=== PATIENT | female | born 1950 | race Caucasian/White ===

== ENCOUNTER 2017-07-12 18:07 | Emergency (ER) ==
[2017-07-12 18:13] VITALS: BP 165/90; TEMP 99.9; BMI 31.9
--- NOTE | 2017-07-12 18:42 | ED.PDOC ---
General ED Provider: Dr. IMELDA WILDER Chief Complaint: Respiratory Complaint Stated Complaint: CC: Cough and congestion. Has been ill for past several days but beginning. last evening developed SOB which has progessed today. Burning sensation in chest with coughiing with coughing. Cough is productive of yellowish thick sputum. States she just finished a Rx for Zithromax yesterday and started taking Mobic for an injured lt shoulder today. Overall her main problem is pain in her lower ribcage regions bilaterally from the coughing. Has not been taking. cough meds. Time Seen by Physician: 18:30 Mode of Arrival: Walk-In Information Source: Patient Primary Care Provider: LAURITA MENDIOLA Nursing and Triage Documentation Reviewed and Agree: Yes Reviewed sepsis parameters & appropriate labs ordered?: Yes System Inflammatory Response Syndrome: Not Applicable Sepsis Protocol: For patient's 13 years and over: Temp is 96.8 and below OR 101 and greater Pulse >90 BPM Resp >20/minute Acutely Altered Mental Status Are patient's symptoms suggestive of a new infection, such as: -Pneumonia -Skin, Soft Tissue -Endocarditis -UTI -Bone, Joint Infection -Implantable Device -Acute Abdominal Infection -Wound Infection -Meningitis -Blood Stream Catheter Infection -Unknown System Inflammatory Response Syndrome: Not Applicable Respiratory Complaint Exam - Respiratory Complaint/Exam Symptoms Are: Still present Timing: Constant Initial Severity: Moderate Current Severity: Moderate Location: Throat, Chest Character: Reports: Productive cough Aggravating: Reports: Exertion, Deep breaths, Recumbent position Alleviating: Reports: OTC Meds Associated Signs and Symptoms: Reports: Fever, Chest pain, Pleuritic chest pain , Nasal congestion, Hoarseness History of Healthcare-Acquired Pneumonia: No Related Surgical History: Reports: None Pulmonary Embolism Risk Factors: None Cardiac Risk Factors: Reports: Elevated lipids, Hypertension Pseudomonas Risk Factors: Reports: None Tuberculosis Risk Factors: Reports: None Status Asthmaticus Risk Factors: Reports: None Home Oxygen Use: No Recent Stress Test: No Recent Echo/LV Function: No Current Antibiotic Use: No Current Asthma Medication Use: No Respiratory Distress: None Inadequate Respiratory Effort: No Dysphagia Present: No Stridor Present: No JVD Present: No Review of Systems - Review Of Systems Constitutional: Reports: Fever, Malaise, Weakness Eyes: Reports: No symptoms Ears, Nose, Mouth, Throat: Reports: No symptoms Respiratory: Reports: Cough, Short of air, Wheezing Cardiac: Reports: No symptoms GI: Reports: No symptoms : Reports: No symptoms Musculoskeletal: Reports: No symptoms, Back pain Skin: Reports: No symptoms Neurological: Reports: No symptoms Endocrine: Reports: No symptoms Hematologic/Lymphatic: Reports: No symptoms All Other Systems: Reviewed and Negative Past Medical History - Past Medical History Endocrine: Reports: None Cardiovascular: Reports: None, CAD, Hypertension Respiratory: Reports: Bronchitis Hematological: Reports: None Gastrointestinal: Reports: GERD Genitourinary: Reports: None Neuro/Psych: Reports: None Musculoskeletal: Reports: Arthritis, Back Pain, Joint Pain Cancer: Reports: None Last Menstrual Period: n/a - Surgical History General Surgical History: Reports: None - Family History Family History: Reports: None - Social History Smoking Status: Former smoker Hx Substance Use: No Alcohol Screening: None Physical Exam - Physical Exam Appearance: Ill-appearing Ill-appearing: Moderate Pain Distress: Mild Eyes: LEANN, EOMI, Conjunctiva clear ENT: Ears normal, Nose normal, Oropharynx normal Neck: Supple Respiratory: Airway patent, Breath sounds diminished, Wheezes Cardiovascular: RRR, Pulses normal GI/: Soft, Nontender, No masses Musculoskeletal: Normal strength, ROM intact Skin: Warm, Dry, Normal color Neurological: Sensation intact, Motor intact, Reflexes intact, Cranial nerves intact, Alert, Oriented Psychiatric: Affect appropriate, Mood appropriate Critical Care Note - Critical Care Note Total Time (mins): 0 Course - Course Hematology/Chemistry: 07/12/17 19:49 07/12/17 19:49 Orders, Labs, Meds: Lab Review 07/12/17 07/12/17 07/12/17 19:11 19:49 19:49 WBC 10.79 H RBC 4.30 Hgb 13.6 Hct 38.1 MCV 88.6 MCH 31.6 H MCHC 35.7 H RDW Coeff of Jass 12.5 Plt Count 223 Immature Gran % (Auto) 0.3 Neut % (Auto) 72.3 Lymph % (Auto) 11.6 [place] % (Auto) 11.9 H Eos % (Auto) 3.4 Baso % (Auto) 0.5 Immature Gran # (Auto) 0.0 Neut # 7.8 H Lymph # 1.3 [place] # 1.3 Eos # 0.4 Baso # 0.1 Puncture Site Lb O2 Saturation 95.0 ABG pH 7.415 ABG pCO2 35.1 ABG pO2 75.0 L ABG HCO3 22.5 ABG Total CO2 24 ABG Base Excess -2 Noé Test + FiO2 % 21.0 Sodium 137 Potassium 4.3 Chloride 110 H Carbon Dioxide 19 L Anion Gap 12.3 BUN 24 H Creatinine 0.83 Estimated GFR (MDRD) 68.00 BUN/Creatinine Ratio 28.91 Glucose 133 H Calcium 9.3 Total Bilirubin 0.4 AST 23 ALT 27 Alkaline Phosphatase 131 Total Protein 7.1 Albumin 3.4 Globulin 3.7 Albumin/Globulin Ratio 0.92 Orders Category Date Time Status ABG DRAW REQUEST Stat CARDIO 07/12/17 19:11 Ordered EKG-(ED ONLY) Stat CARDIO 07/12/17 19:13 Ordered NEBULIZER TREATMENT Stat CARDIO 07/12/17 19:10 Ordered ABG Stat LAB 07/12/17 19:11 Completed CBC W/ AUTO DIFF Stat LAB 07/12/17 19:49 Completed CMP [COMPREHENSIVE METABOLIC PANEL] Stat LAB 07/12/17 19:49 Completed Albuterol Sulfate 0.083% Neb [Albuterol 0.083% Neb] MEDS 07/12/17 19:09 Discontinued 1 vial NEB ONCE STA CHEST, 2 VIEWS PA & LAT Stat RADS 07/12/17 19:10 Taken Medications Discontinued Medications Generic Name Dose Route Start Last Admin Trade Name Freq PRN Reason Stop Dose Admin Albuterol Sulfate 1 vial 07/12/17 19:09 07/12/17 19:45 Albuterol 0.083% Neb NEB 07/12/17 19:10 1 vial ONCE STA Administration Vital Signs: Temp Pulse Resp BP Pulse Ox 07/12/17 18:09 99.9 F H 105 H 20 165/90 H 96 Departure - Departure Time of Disposition: 20:20 Disposition: HOME SELF-CARE Discharge Problem: URI (upper respiratory infection), Chest wall pain Instructions: Upper Respiratory Infection (ED), Chest Wall Pain (ED) Condition: Good Pt referred to PMD for follow-up: Yes (1 week) IPMP verified?: No Additional Instructions: Use albuterol inhaler every 4 hours while awake to reduce chest congestion and shortness of breath Prescriptions: Albuterol Sulfate [Proair Hfa] 2 puff IH Q4H PRN #1 inhaler PRN Reason: Wheezing Amoxicillin 875 mg PO BID #14 tablet Prednisone 10 mg PO DIRECTED #18 tab Allergies/Adverse Reactions: Allergies codeine Adverse Reaction (Verified 07/12/17 18:12) morphine Adverse Reaction (Verified 07/12/17 18:12) Home Medications: Ambulatory Orders Amlodipine Besylate [Norvasc] 10 mg PO DAILY 11/20/12 Aspirin [Aspirin Chewable] 81 mg PO DAILY 11/20/12 Atorvastatin Calcium [Lipitor] 40 mg PO DAILY 11/20/12 Clonidine HCl [Catapres] 0.2 mg PO BID 11/20/12 Furosemide [Lasix Tab] 20 mg PO DAILY 11/20/12 Isosorbide Mononitrate [Imdur] 30 mg PO DAILY 11/20/12 Lisinopril [Zestril] 20 mg PO BID 11/20/12 Metoprolol Tartrate [Lopressor] 50 mg PO DAILY 11/20/12 Pantoprazole Sodium [Protonix] 40 mg PO QDAC 11/20/12 Potassium Chloride [Klor-Con 10] 10 meq PO DAILY 11/20/12 Albuterol Sulfate [Proair Hfa] 2 puff IH Q4H PRN #1 inhaler 07/12/17 Amoxicillin 875 mg PO BID #14 tablet 07/12/17 Cyclobenzaprine HCl [Flexeril] 5 mg PO BID 07/12/17 Prednisone 10 mg PO DIRECTED #18 tab 07/12/17 Disposition Discussed With: Patient Additional Information: Take meds as directed Use RObitussin DM 2 tsp every 4 hours for coughing as needed Return to ER if conditon worsens
[2017-07-12] MEDS ORDERED: ALBUTEROL 0.083% NEB NEB STA (19:09)
--- NOTE | 2017-07-13 07:38 | DI ---
EXAM: CHEST FRONTAL AND LATERAL VIEWS HISTORY: Dyspnea. COMPARISON: 01/16/2012 FINDINGS: Heart size and mediastinal contour remain within normal limits. There are scattered calc ifications suggesting old granulomatous disease. No acute infiltrates are seen. No vascular congest ion. There is no consolidation, visible pleural fluid or pneumothorax. Bones reveal no acute fractur e. IMPRESSION: No acute cardiopulmonary process.
== END 2017-07-12 20:46 | disposition home or self-care (01) ==
LOC: ED 18:07
DX: J06.9 Acute upper respiratory infection, unspecified (principal); R07.89 Other chest pain; R06.02 Shortness of breath; E78.5 Hyperlipidemia, unspecified; I10 Essential (primary) hypertension; I25.10 Atherosclerotic heart disease of native coronary artery without angina pectoris; Z79.899 Other long term (current) drug therapy
CPT/HCPCS: 36415; 80053; 82803; 85025; 93005; 93010; 94640; 99283